=== PATIENT | female | born 1995 | race African-American/Black ===

== ENCOUNTER 2017-04-16 11:57 | Emergency (ER) | payer OTHER ==
[~2017-04-16] VITALS: Ht 157.5 cm; Wt 48.0 kg
[2017-04-16 12:05] VITALS: BP 98/52
== END 2017-04-16 21:11 | disposition left against medical advice (07) ==
LOC: ER 14:36
DX: O20.9 Hemorrhage in early pregnancy, unspecified (principal); O26.891 Other specified pregnancy related conditions, first trimester; R10.9 Unspecified abdominal pain; Z3A.01 Less than 8 weeks gestation of pregnancy; Z53.21 Procedure and treatment not carried out due to patient leaving prior to being seen by health care provider

== ENCOUNTER 2017-04-20 16:00 | Emergency (ER) | payer OTHER ==
[~2017-04-20] VITALS: Ht 165.1 cm; Wt 55.0 kg
[2017-04-20] MEDS ORDERED: SODIUM CHLORIDE 0.9% 1,000 ML IV ONE (16:15)
[2017-04-20 16:46] LABS: BASOPHILS % 0.3 % (0.0-2.0); EOSINOPHILS % 0.5 % (0.0-5.0); HEMATOCRIT. 40.6 % (36.0-48.0); HEMOGLOBIN. 13.2 g/dL (12.0-16.0); LYMPHOCYTES % 13.6 % (20.0-50.0); MEAN CORPUSCULAR HEMOGLOBIN 27.7 pg (28.0-32.0); MEAN CORPUSCULAR VOLUME 85.2 fL (81.0-99.0); MEAN PLATELET VOLUME 7.4 fl (7.4-10.4); MONOCYTES % 5.6 % (2.0-8.0); PLATELET 239 x1000/uL (130-400); RED BLOOD CELL COUNT 4.77 mill/uL (4.2-5.4); RED CELL DISTRIBUTION WIDTH 14.7 % (11.6-14.6)
[2017-04-20 16:50] LABS: CHLORIDE 104 mEq/L (98-107)
[2017-04-20 16:52] LABS: CARBON DIOXIDE 20 mEq/L (21-32)
[2017-04-20 16:59] LABS: B-HCG QUANTITATIVE 661 mIU/mL (<3)
[2017-04-20] MEDS ORDERED: MORPHINE SULFATE 4 MG/ML CPJ (NOT FOR IM USE) IV ONE (17:00)
[2017-04-20] MEDS ORDERED: ONDANSETRON HCL 4MG/2ML VIAL IV ONE (17:00)
[2017-04-20] MEDS ORDERED: POTASSIUM CHLORIDE 20MEQ TABLET SR PO NR (17:07)
[2017-04-20] MEDS ORDERED: IBUPROFEN 400MG TABLET PO ONE (18:30)
[2017-04-20] MEDS ORDERED: METHYLERGONOVINE MALEATE 0.2 MG/ML IM ONE (18:30)
[2017-04-20 19:18] LABS: CLARITY URINE TURBID (CLEAR); COLOR URINE RED (YELLOW); GLUCOSE URINE NEGATIVE (NEGATIVE); KETONES URINE 3+ (NEGATIVE); LEUKOCYTE ESTERASE URINE 2+ (NEGATIVE); NITRITE URINE POSITIVE (NEGATIVE); OCCULT BLOOD URINE 3+ (NEGATIVE); PROTEIN URINE 2+ (NEGATIVE); SPECIFIC GRAVITY URINE 1.027 (1.005-1.030); UROBILINOGEN URINE 0.2 E.U./dL (0.2-1.0)
[2017-04-20 20:45] VITALS: BP 109/63
[2017-04-20] MEDS ORDERED: ONDANSETRON 4MG ODT PO ONE (20:45)
[2017-04-20] MEDS ORDERED: HYDROCODONE/ACETAMINOPHEN 5/325MG TABLET PO ONE (20:45)
== END 2017-04-20 20:55 | disposition home or self-care (01) ==
LOC: ER 16:00
DX: O03.88 Urinary tract infection following complete or unspecified spontaneous abortion (principal); N39.0 Urinary tract infection, site not specified; O03.83 Metabolic disorder following complete or unspecified spontaneous abortion; E87.6 Hypokalemia; O99.511 Diseases of the respiratory system complicating pregnancy, first trimester; J45.909 Unspecified asthma, uncomplicated; Z3A.12 12 weeks gestation of pregnancy
CPT/HCPCS: 36415; 76801; 80048; 81001; 84702; 85025; 86850; 86900; 86901; 96361; 96372; 96374; 96375; 99285; J2210; J2270; J2405; Q0162; Z7610; 88305; J7030

== ENCOUNTER 2024-01-23 12:57 | Emergency (ER) | payer MEDICAID, OTHER ==
[~2024-01-23] VITALS: Ht 157.5 cm; Wt 55.0 kg
[2024-01-23 13:03] VITALS: BP 108/57; PULSE 63; RESP 18; TEMP 97.7; O2SAT 98
[2024-01-23] MEDS ORDERED: IBUP-2029 MT (15:23)
== END 2024-01-23 15:37 | disposition home or self-care (01) ==
LOC: ER 12:57
DX: S00.83XA Contusion of other part of head, initial encounter (principal); J45.909 Unspecified asthma, uncomplicated; Y08.89XA Assault by other specified means, initial encounter; Y93.89 Activity, other specified; Y92.89 Other specified places as the place of occurrence of the external cause; Y99.8 Other external cause status
CPT/HCPCS: 70486; 81025; 99284